=== PATIENT | male | born 2005 | race Caucasian/White ===

== ENCOUNTER 2024-08-15 08:29 | Emergency (ER) | payer OTHER, SELFPAY ==
[2024-08-15 08:36] VITALS: BP 124/77
--- NOTE | 2024-08-15 08:53 | EDRN ---
Nenita ONEILL in room w/ pt at this time.
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
--- NOTE | 2024-08-15 09:11 | EDRN ---
Dr. Finnegan in to see pt,.
[2024-08-15 09:14] VITALS: BMI 21.2
[2024-08-15] MEDS: TYLENOL 1000 MG PO (09:19)
[2024-08-15] MEDS: ADACEL 0.5 ML IM (09:21)
[2024-08-15 09:30] VITALS: BP 102/78
--- NOTE | 2024-08-15 11:28 | EDRN ---
Pt's wounds were washed extensively w/ soap and water and irrigated w/ saline, expecially L elbow, R forearm and R knee. All other wounds were cleansed w/ soap and water except R finger #5 that was soaked in saline/betadine and warm water for 20
minutes. R forearm was dressed w/ double antibiotic ointment, adaptic, sterile 4.4s and [place]. R finger #5, R ankle x2 wounds on lateral and medical malleolus, L elbow, and R hip were all dressed w/ double antibiotic ointment and bandaids. R knee
was dressed w/ double antibiotic ointment, adaptic, sterile 4x4 gauze dressings and kerlix.
--- NOTE | 2024-08-15 11:40 | EDRN ---
Yuko OAKES applied florencio wrap to pt's ankle.
[2024-08-15 11:43] VITALS: BP 118/67
[2024-08-15 11:44] VITALS: BP 118/67
== END 2024-08-15 11:57 | disposition home or self-care (01) ==
LOC: EMR 08:29
PROVIDERS: EMERGENCY PHYSICIAN Emergency Medicine; FAMILY PHYSICIAN Family Medicine
DX: S09.90XA Unspecified injury of head, initial encounter (principal); S93.401A Sprain of unspecified ligament of right ankle, initial encounter; S80.812A Abrasion, left lower leg, initial encounter; S80.811A Abrasion, right lower leg, initial encounter; S40.812A Abrasion of left upper arm, initial encounter; S40.811A Abrasion of right upper arm, initial encounter; V28.49XA Other motorcycle driver injured in noncollision transport accident in traffic accident, initial encounter; Z23 Encounter for immunization
CPT/HCPCS: 99285; 90471; 70450; 72125; 73140; 73502; 73564; 73610; 90715

== ENCOUNTER → 2025-09-09 09:35 | Outpatient (REF) | payer BC, SELFPAY | LOC: HWRAD 09:35 | PROVIDERS: ATTENDING PHYSICIAN Physician Assistant Medical | DX: G93.0 Cerebral cysts (principal); Q04.6 Congenital cerebral cysts | CPT/HCPCS: 70450 ==